=== PATIENT | male | born 1955 | race Caucasian/White ===

== ENCOUNTER → 2019-11-21 11:56 | Outpatient (BNVA) | payer MEDICARE, OTHER, SELFPAY | PROVIDERS: Family Provider Family Medicine; PCP Family Medicine; Referring Provider Family Medicine; Visit Provider Family Medicine | DX: F33.9 Major depressive disorder, recurrent, unspecified (principal); F43.10 Post-traumatic stress disorder, unspecified; G20 Parkinson's disease; R19.00 Intra-abdominal and pelvic swelling, mass and lump, unspecified site | CPT/HCPCS: 80053; 80061; 84443; 85025; G0103 ==

== ENCOUNTER → 2019-11-24 09:25 | Outpatient (BNVA) | payer SELFPAY | PROVIDERS: Family Provider Family Medicine; PCP Family Medicine; Visit Provider Psychiatry & Neurology Neurology | DX: R29.90 Unspecified symptoms and signs involving the nervous system (principal); G25.0 Essential tremor; Z79.899 Other long term (current) drug therapy | CPT/HCPCS: 99214 ==

== ENCOUNTER 2019-12-02 07:24 | Outpatient (CLI) | payer MEDICARE, OTHER, SELFPAY ==
--- NOTE | 2019-12-02 07:27 | CT_ITS ---
WS: [id number] CT CHEST, ABDOMEN, AND PELVIS TECHNIQUE: Noncontrast CT of the chest, abdomen, and pelvis with coronal and sagittal reformatted micheline ges. CLINICAL INFORMATION: abdominal mass, weight loss, smoker COMPARISON: None. DLP: 1253.[address] scans at [facility] use at least one of these dose optimization techniques: automat ed exposure control; mA and/or kV adjustment per patient size (includes targeted exams where dose is matched to clinical indication); or iterative reconstruction. CT CHEST: Mild chronic emphysematous changes. Noncalcified pulmonary nodule right upper lobe measuring 6 mm wit h a small amount of surrounding hazy groundglass infiltrate. Additional hazy groundglass nodule in th e right upper lobe medially measuring 4 mm. Additional noncalcified nodule in the right upper lobe measuring 3.5 mm. Additional 11 mm hazy irregu lar nodule in the right upper lobe along the right hilum with surrounding groundglass infiltrate. Sma ll neoplasm is not excluded. Aortic calcification. Coronary calcification. Normal caliber thoracic aorta. No mediastinal or hilar lymphadenopathy. No axillary lymphadenopathy. Normal GE junction. Dorsal spinal stimulator. CT ABDOMEN AND PELVIS: Noncontrast liver is normal. Normal gallbladder. Adrenal glands are normal. Normal noncontrast spleen . Normal GE junction. No hydronephrosis. Right renal cyst. Normal caliber abdominal aorta. Aortic dung cification. Sigmoid constipation. Incidental fat-containing umbilical hernia. No upper abdominal or pelvic lympha denopathy. No inguinal lymphadenopathy. Palpable marker in the right lower abdomen/pelvis. Normal underlying subcutaneous tissues in this loc ation. No ventral hernia. CT/CT chest abd pel wo con IMPRESSION: 1. In the area of palpable concern, right lower abdomen pelvis no evidence of underlying mass or lesion. Normal subcutaneous fat in this location. No ventral hernia. 2. No adenopathy in the chest abdomen or pelvis. 3. Moderate sigmoid constipation. 4. Right renal cysts. 5. Normal caliber abdominal aorta. 6. Several noncalcified pulmonary nodules the largest on the right hilum measu ring 10 mm. Surrounding hazy groundglass infiltrate. Small neoplasm is not excl uded and recommend 3 month follow-up and/or further evaluation with PET/CT. 7. Additional noncalcified 6mm nodule in the right upper lobe with surrounding groundglass infiltrate. 8. Additional right-sided subcentimeter nodules as described above.
== END 2019-12-02 07:25 | disposition home or self-care (01) ==
PROVIDERS: Family Provider Family Medicine; PCP Family Medicine; Visit Provider Family Medicine
DX: N28.1 Cyst of kidney, acquired (principal); K59.00 Constipation, unspecified; R19.00 Intra-abdominal and pelvic swelling, mass and lump, unspecified site; R91.8 Other nonspecific abnormal finding of lung field
CPT/HCPCS: 71250; 74176

== ENCOUNTER 2020-02-06 10:39 | Outpatient (CLI) | payer MEDICARE, OTHER, SELFPAY ==
--- NOTE | 2020-02-06 11:00 | CT_ITS ---
WS: [id number] CT CHEST TECHNIQUE: Noncontrast CT of the chest with coronal and sagittal reformatted images. CLINICAL INFORMATION: Pulmonary Nodule COMPARISON: CT December 02, 2019 DLP: 806.[address] scans at [facility] use at least one of these dose optimization techniques: automat ed exposure control; mA and/or kV adjustment per patient size (includes targeted exams where dose is matched to clinical indication); or iterative reconstruction. FINDINGS: Mild chronic emphysematous changes. Previously described hazy groundglass infiltrates in right upper lobe have improved. The previously described 10 mm right hilar opacity has resolved and was likely in fectious or inflammatory in etiology. Additional noncalcified pulmonary nodules in the right upper lo be the largest measuring 6 mm are stable. Stable 3.5 mm noncalcified nodule in the right upper lobe a nteriorly. Remainder of the subcentimeter pulmonary nodules are stable. No new parenchymal opacities. No focal pneumonia.Aortic calcification. Coronary calcification. Normal caliber thoracic aorta. Normal GE junction. Dorsal spinal stimulator. Right renal cyst. CT/CT chest wo con [id number] IMPRESSION: 1. Previously described groundglass hazy infiltrates in the right upper lobe a nd about the right hilum have resolved. Dominant opacity about the right hilum previously described measuring 11 mm has resolved and was likely infectious or inflammatory. 2. Otherwise stable noncalcified pulmonary nodules in the right upper lobe the largest measuring 6 mm. 3. No new pulmonary parenchymal opacities. 4. No mediastinal or hilar lymphadenopathy. 5. Vascular calcification including coronary. 6. No other significant interval changes.
== END 2020-02-06 10:40 | disposition home or self-care (01) ==
LOC: RADWPI 10:43
PROVIDERS: Family Provider Family Medicine; PCP Family Medicine; Visit Provider Internal Medicine Critical Care Medicine
DX: R91.1 Solitary pulmonary nodule (principal); R91.8 Other nonspecific abnormal finding of lung field; I67.2 Cerebral atherosclerosis
CPT/HCPCS: 71250

== ENCOUNTER → 2020-06-28 10:08 | Outpatient (BNVA) | payer MEDICARE, OTHER, SELFPAY | PROVIDERS: Family Provider Family Medicine; PCP Family Medicine; Visit Provider Family Medicine Adult Medicine | DX: N40.0 Benign prostatic hyperplasia without lower urinary tract symptoms (principal); N18.2 Chronic kidney disease, stage 2 (mild); K21.9 Gastro-esophageal reflux disease without esophagitis; G25.0 Essential tremor; E78.2 Mixed hyperlipidemia | CPT/HCPCS: 80053; 80061; 85025; G0103 ==

== ENCOUNTER → 2020-09-08 13:49 | Outpatient (BNVA) | payer MEDICARE, OTHER, SELFPAY | PROVIDERS: Family Provider Family Medicine; PCP Family Medicine Adult Medicine; Visit Provider Specialist | DX: R25.1 Tremor, unspecified (principal); Z87.891 Personal history of nicotine dependence | CPT/HCPCS: 99213 ==

== ENCOUNTER 2021-02-10 14:39 | Outpatient (CLI) | payer MEDICARE, OTHER, SELFPAY ==
--- NOTE | 2021-02-10 15:00 | US_ITS ---
WS: [id number] SCROTAL ULTRASOUND EXAMINATION CLINICAL INFORMATION: right scrotum swelling/mass getting larger COMPARISON: None. FINDINGS: TESTES Normal in size and echotexture, without focal lesion. Color Doppler: Normal color Doppler flow pattern. Right testes size: 3.7 cm x 3.4 cm x 3.1 cm. Left testes size: 4.8 cm x 3.2 cm x 3.1 cm. EPIDIDYMIDES Normal right epididymis. Left epididymis is not well visualized. Right epididymis size: cm x cm x 0.7 cm. HYDROCELE Moderate bilateral hydroceles right greater than left with internal debris. Edematous scrotum. VARICOCELE None. OTHER FINDINGS None. US/US scrotum [id number] IMPRESSION: 1. Moderate bilateral hydroceles right greater than left with internal debris. Edematous scrotum. 2. Normal testicular size and echotexture. 3. Normal right epididymis. Left epididymis not well visualized.
== END 2021-02-10 14:40 | disposition home or self-care (01) ==
LOC: RAD 14:43
PROVIDERS: PCP Family Medicine Adult Medicine; Visit Provider Family Medicine Adult Medicine
DX: N50.89 Other specified disorders of the male genital organs (principal); N43.3 Hydrocele, unspecified
CPT/HCPCS: 76870

== ENCOUNTER → 2021-02-18 11:37 | Outpatient (BNVA) | payer MEDICARE, OTHER, SELFPAY | PROVIDERS: PCP Family Medicine Adult Medicine; Referring Provider Family Medicine Adult Medicine; Visit Provider Urology | DX: N18.2 Chronic kidney disease, stage 2 (mild) (principal); N43.3 Hydrocele, unspecified; N40.0 Benign prostatic hyperplasia without lower urinary tract symptoms | CPT/HCPCS: 81003; G0103 ==

== ENCOUNTER → 2021-09-19 10:48 | Outpatient (BNVA) | payer MEDICARE, OTHER, SELFPAY | PROVIDERS: PCP Family Medicine Adult Medicine; Visit Provider Family Medicine Adult Medicine | DX: N18.2 Chronic kidney disease, stage 2 (mild) (principal); I10 Essential (primary) hypertension; N40.0 Benign prostatic hyperplasia without lower urinary tract symptoms; E03.9 Hypothyroidism, unspecified | CPT/HCPCS: 80053; 80061; 84443; 85025; G0103 ==

== ENCOUNTER → 2021-09-27 10:50 | Outpatient (BNVA) | payer MEDICARE, OTHER, SELFPAY | PROVIDERS: PCP Family Medicine Adult Medicine; Visit Provider Specialist | DX: G25.0 Essential tremor (principal); G31.84 Mild cognitive impairment of uncertain or unknown etiology; R63.0 Anorexia; Z68.26 Body mass index [BMI] 26.0-26.9, adult; F32.A Depression, unspecified; Z87.891 Personal history of nicotine dependence | CPT/HCPCS: 96116; 99214 ==

== ENCOUNTER → 2021-12-20 11:56 | Outpatient (BNVA) | payer MEDICARE, SELFPAY | PROVIDERS: PCP Family Medicine Adult Medicine; Visit Provider Family Medicine Adult Medicine | DX: K52.9 Noninfective gastroenteritis and colitis, unspecified (principal); I10 Essential (primary) hypertension; N18.2 Chronic kidney disease, stage 2 (mild); E78.2 Mixed hyperlipidemia; E03.9 Hypothyroidism, unspecified; R63.4 Abnormal weight loss | CPT/HCPCS: 80053; 84443 ==

== ENCOUNTER → 2022-02-06 11:28 | Outpatient (BNVA) | payer MEDICARE, OTHER, SELFPAY | PROVIDERS: PCP Family Medicine Adult Medicine; Visit Provider Specialist | DX: G25.0 Essential tremor (principal); R19.7 Diarrhea, unspecified; Z87.891 Personal history of nicotine dependence | CPT/HCPCS: 99213; 99214 ==

== ENCOUNTER → 2022-02-15 15:07 | Outpatient (BNVA) | payer MEDICARE, SELFPAY | PROVIDERS: PCP Family Medicine Adult Medicine; Referring Provider Family Medicine Adult Medicine; Visit Provider Surgery | DX: R63.4 Abnormal weight loss (principal); K52.9 Noninfective gastroenteritis and colitis, unspecified | CPT/HCPCS: 99203 ==

== ENCOUNTER 2022-02-18 13:20 | Emergency (ER) | payer MEDICARE, SELFPAY ==
[2022-02-18 14:04] VITALS: BP 121/76; PULSE 63; RESP 16; TEMP 37.2; O2SAT 96
[2022-02-18 15:39] VITALS: BP 131/71; PULSE 57; RESP 20; O2SAT 99
--- NOTE | 2022-02-18 15:43 | W.ED.GENADLT ---
Documented by User: ALVARO Salmeron 02/18/22 16:33 HPI - General Adult General: Chief complaint: General Medical Stated complaint: Pain in rectum area, blood in bowel Time Seen by Provider: 02/18/22 14:12 History of Present Illness: Patient presents with 2-day history of tenderness in his rectal area. Patient states he felt like he had a mass in his rectum yesterday and is feeling better today though. States had some puslike drainage come out of his rectum today. Had some blood yesterday but none today. Denies any fever chills nausea or vomiting. Did see Dr. Huitron last week and is scheduled for a colonoscopy and May. Associated symptoms: Deny chest pain, dyspnea, headache(s) or rash Review of Systems Const: Denies: fever(s) or chills Eyes: Denies: eye discomfort ENMT: Denies: throat pain Card: Denies: chest pain or dyspnea on exertion Resp: Denies: dyspnea or non-productive cough GI: Reports: abdominal pain, rectal pain and mucus in stool; Denies: change in bowel habits, rectal swelling or rectal itching : Denies: difficulty urinating Musc: Denies: joint pain Skin/Breast: Denies: rash Neuro: Denies: headache(s) Psych: Denies: anxiety or depression Jiemnez/Lymph: Denies: easy bruising or enlarged lymph nodes PFSH ED PFSH: Medical History Bradycardia Chronic diarrhea CKD (chronic kidney disease) stage 2, GFR 60-89 ml/min Essential tremor GERD (gastroesophageal reflux disease) Hydrocele, bilateral Hyperlipemia, mixed Hypertension Hypothyroidism (acquired) Memory changes Parkinson disease, symptomatic PTSD (post-traumatic stress disorder) Scrotum swelling Thyroid disease Weight loss of more than 10% body weight Weight loss, abnormal Surgical History History of back surgery Hx of foot surgery Hx of hernia repair Family History Other Hypertension Stroke Denies family history of Diabetes CAD (coronary artery disease) Cancer Social History Smoking and tobacco status: former smoker Quit status (tobacco): has quit using tobacco Year quit tobacco: 2006 Alcohol intake: never History of recent travel: No Physical Exam Const: COMMON NORMALS: no acute distress, patient oriented x3 and alert HENMT: COMMON NORMALS: normocephalic HEAD & SCALP: normocephalic Eye: COMMON NORMALS: EOMs intact bilaterally Neck/C-Spine: COMMON NORMALS: no JVD Resp: COMMON NORMALS: normal respiratory effort and No use of accessory muscles Cardio: COMMON NORMALS: no JVD GI: INSPECTION: Yes normal to inspection RECTAL EXAM: Yes normal sphincter tone, Yes heme negative stool, Yes Visual inspection abnormal (Slight redness about into 2 inches out from the rectum all around), No heme positive stool, No hemorrhoids, Yes Excoriation present (GI), Yes tenderness (Superior aspect of rectal exam tenderness noted. No mass felt) and Yes other (Minimal snot like drainage noted rectal opening) Extremity: COMMON NORMALS: normal to inspection and full ROM Neuro: COMMON NORMALS: patient oriented x3 SENSORIUM/ORIENTATION: Yes alert Psych: COMMON NORMALS: mental status grossly normal Skin: COMMON NORMALS: no rashes or lesions noted GENERAL SKIN EXAM: no rashes or lesions noted Course Vital Signs: Vital signs: Vital Signs Temperature 99.0 F 02/18/22 14:04 Pulse Rate 57 L 02/18/22 15:39 Respiratory Rate 20 H 02/18/22 15:39 Blood Pressure 131/71 02/18/22 15:39 Pulse Oximetry 99 02/18/22 15:39 MDM - General Adult Medical Decision Making Possible rectal abscess. Patient be placed on antibiotics, consult made for Dr. Huitron. I discussed case with Dr. Galindo. Pt will take abx and return to the ER if he has any significant worsening of symptoms. Discharge Plan Discharge Patient Disposition: Home Clinical Impression: Abscess of anal or rectal region Condition: Stable Prescriptions: New clindamycin HCl 300 mg capsule 300 mg PO Q8H 7 Days Qty: 21 0RF No Action calcium polycarbophil [FiberCon] 625 mg tablet 1,250 mg PO BID Qty: 120 5RF folic acid 1 mg tablet See Rx Instructions .ROUTE .COMPLEX Qty: 90 3RF Dose Instruction: TAKE 1 TABLET BY MOUTH DAILY Rx Instructions: TAKE 1 TABLET BY MOUTH DAILY pantoprazole 40 mg tablet,delayed release (DR/EC) See Rx Instructions .ROUTE .COMPLEX Qty: 90 3RF Dose Instruction: TAKE 1 TABLET BY MOUTH DAILY Rx Instructions: TAKE 1 TABLET BY MOUTH DAILY prazosin 2 mg capsule See Rx Instructions .ROUTE .COMPLEX Qty: 180 1RF Dose Instruction: TAKE 1 CAPSULE BY MOUTH TWICE DAILY FOR 90 DAYS Rx Instructions: TAKE 1 CAPSULE BY MOUTH TWICE DAILY FOR 90 DAYS olanzapine 20 mg tablet See Rx Instructions .ROUTE .COMPLEX Qty: 90 1RF Dose Instruction: TAKE 1 TABLET BY MOUTH NIGHTLY Rx Instructions: TAKE 1 TABLET BY MOUTH NIGHTLY levothyroxine 50 mcg tablet See Rx Instructions .ROUTE .COMPLEX Qty: 90 0RF Dose Instruction: TAKE 1 TABLET BY MOUTH DAILY Rx Instructions: TAKE 1 TABLET BY MOUTH DAILY duloxetine 60 mg capsule,delayed release(DR/EC) See Rx Instructions .ROUTE .COMPLEX Qty: 90 0RF Dose Instruction: TAKE 1 CAPSULE BY MOUTH NIGHTLY AT BEDTIME Rx Instructions: TAKE 1 CAPSULE BY MOUTH NIGHTLY AT BEDTIME simvastatin 20 mg tablet See Rx Instructions .ROUTE .COMPLEX Qty: 90 0RF Dose Instruction: TAKE 1 TABLET BY MOUTH DAILY FOR 90 DAYS Rx Instructions: TAKE 1 TABLET BY MOUTH DAILY FOR 90 DAYS duloxetine 30 mg capsule,delayed release(DR/EC) See Rx Instructions .ROUTE .COMPLEX Qty: 90 0RF Dose Instruction: TAKE 1 CAPSULE BY MOUTH NIGHTLY . TAKE IN ADDITION WITH THE 60MG CAPSULE Rx Instructions: TAKE 1 CAPSULE BY MOUTH NIGHTLY . TAKE IN ADDITION WITH THE 60MG CAPSULE primidone 50 mg tablet 100 mg PO BID 90 Days Qty: 360 1RF clonidine HCl 0.1 mg tablet See Rx Instructions .ROUTE .COMPLEX 90 Days Qty: 270 0RF Dose Instruction: TAKE ONE TABLET BY MOUTH THREE TIMES DAILY FOR BLOOD PRESSURE Rx Instructions: TAKE ONE TABLET BY MOUTH THREE TIMES DAILY FOR BLOOD PRESSURE metoprolol tartrate 25 mg tablet 12.5 mg PO .qhs Qty: 45 5RF tamsulosin 0.4 mg capsule See Rx Instructions .ROUTE .COMPLEX Qty: 90 1RF Dose Instruction: TAKE 1 CAPSULE BY MOUTH DAILY Rx Instructions: TAKE 1 CAPSULE BY MOUTH DAILY Discharge Orders: Discharge ED (Routine); Ordered 02/18/22 Ordered By: Danis Melton Referrals: Luis Manuel Rollins MD [Primary Care Provider] - Discharge Diet: Advance as tolerated Discharge Activity: Resume usual activity Activity Restrictions/Additional Instructions: Follow-up with medical provider as directed. Take medications as prescribed. Return to the ER or your medical provider if condition worsens. Please read and understand discharge instructions. If any questions ask please. Hospital will contact you with an appointment for Dr. Huitron's clinic. If you not hear from the hospital by Sunday please call his clinic for an appointment. Coding Level of Care Code ED Slicing Machine Feeder for Chg Fwd Exam Comprehensive Documented by User: Luca Galindo DO 02/20/22 10:02 HPI - General Adult General: Chief complaint: General Medical Stated complaint: Pain in rectum area, blood in bowel Time Seen by Provider: 02/18/22 14:12 PFSH ED PFSH: Medical History Bradycardia Chronic diarrhea CKD (chronic kidney disease) stage 2, GFR 60-89 ml/min Essential tremor GERD (gastroesophageal reflux disease) Hydrocele, bilateral Hyperlipemia, mixed Hypertension Hypothyroidism (acquired) Memory changes Parkinson disease, symptomatic PTSD (post-traumatic stress disorder) Scrotum swelling Thyroid disease Weight loss of more than 10% body weight Weight loss, abnormal Surgical History History of back surgery Hx of foot surgery Hx of hernia repair Family History Other Hypertension Stroke Denies family history of Diabetes CAD (coronary artery disease) Cancer Social History Smoking and tobacco status: former smoker Quit status (tobacco): has quit using tobacco Year quit tobacco: 2006 Alcohol intake: never History of recent travel: No Course Vital Signs: Vital signs: Vital Signs Temperature 99.0 F 02/18/22 14:04 Pulse Rate 57 L 02/18/22 15:39 Respiratory Rate 20 H 02/18/22 15:39 Blood Pressure 131/71 02/18/22 15:39 Pulse Oximetry 99 02/18/22 15:39 MDM - General Adult Medical Decision Making Possible rectal abscess. Patient be placed on antibiotics, consult made for Dr. Huitron. I discussed case with Dr. Galindo. Pt will take abx and return to the ER if he has any significant worsening of symptoms. Chart reviewed and patient discussed with midlevel. Agree with assessment and plan. Discharge Plan Discharge Patient Disposition: Home Clinical Impression: Abscess of anal or rectal region Condition: Stable Prescriptions: New clindamycin HCl 300 mg capsule 300 mg PO Q8H 7 Days Qty: 21 0RF No Action calcium polycarbophil [FiberCon] 625 mg tablet 1,250 mg PO BID Qty: 120 5RF folic acid 1 mg tablet See Rx Instructions .ROUTE .COMPLEX Qty: 90 3RF Dose Instruction: TAKE 1 TABLET BY MOUTH DAILY Rx Instructions: TAKE 1 TABLET BY MOUTH DAILY pantoprazole 40 mg tablet,delayed release (DR/EC) See Rx Instructions .ROUTE .COMPLEX Qty: 90 3RF Dose Instruction: TAKE 1 TABLET BY MOUTH DAILY Rx Instructions: TAKE 1 TABLET BY MOUTH DAILY prazosin 2 mg capsule See Rx Instructions .ROUTE .COMPLEX Qty: 180 1RF Dose Instruction: TAKE 1 CAPSULE BY MOUTH TWICE DAILY FOR 90 DAYS Rx Instructions: TAKE 1 CAPSULE BY MOUTH TWICE DAILY FOR 90 DAYS olanzapine 20 mg tablet See Rx Instructions .ROUTE .COMPLEX Qty: 90 1RF Dose Instruction: TAKE 1 TABLET BY MOUTH NIGHTLY Rx Instructions: TAKE 1 TABLET BY MOUTH NIGHTLY levothyroxine 50 mcg tablet See Rx Instructions .ROUTE .COMPLEX Qty: 90 0RF Dose Instruction: TAKE 1 TABLET BY MOUTH DAILY Rx Instructions: TAKE 1 TABLET BY MOUTH DAILY duloxetine 60 mg capsule,delayed release(DR/EC) See Rx Instructions .ROUTE .COMPLEX Qty: 90 0RF Dose Instruction: TAKE 1 CAPSULE BY MOUTH NIGHTLY AT BEDTIME Rx Instructions: TAKE 1 CAPSULE BY MOUTH NIGHTLY AT BEDTIME simvastatin 20 mg tablet See Rx Instructions .ROUTE .COMPLEX Qty: 90 0RF Dose Instruction: TAKE 1 TABLET BY MOUTH DAILY FOR 90 DAYS Rx Instructions: TAKE 1 TABLET BY MOUTH DAILY FOR 90 DAYS duloxetine 30 mg capsule,delayed release(DR/EC) See Rx Instructions .ROUTE .COMPLEX Qty: 90 0RF Dose Instruction: TAKE 1 CAPSULE BY MOUTH NIGHTLY . TAKE IN ADDITION WITH THE 60MG CAPSULE Rx Instructions: TAKE 1 CAPSULE BY MOUTH NIGHTLY . TAKE IN ADDITION WITH THE 60MG CAPSULE primidone 50 mg tablet 100 mg PO BID 90 Days Qty: 360 1RF clonidine HCl 0.1 mg tablet See Rx Instructions .ROUTE .COMPLEX 90 Days Qty: 270 0RF Dose Instruction: TAKE ONE TABLET BY MOUTH THREE TIMES DAILY FOR BLOOD PRESSURE Rx Instructions: TAKE ONE TABLET BY MOUTH THREE TIMES DAILY FOR BLOOD PRESSURE metoprolol tartrate 25 mg tablet 12.5 mg PO .qhs Qty: 45 5RF tamsulosin 0.4 mg capsule See Rx Instructions .ROUTE .COMPLEX Qty: 90 1RF Dose Instruction: TAKE 1 CAPSULE BY MOUTH DAILY Rx Instructions: TAKE 1 CAPSULE BY MOUTH DAILY Discharge Orders: Discharge ED (Routine); Ordered 02/18/22 Ordered By: Danis Melton Referrals: Luis Manuel Rollins MD [Primary Care Provider] - Discharge Diet: Advance as tolerated Discharge Activity: Resume usual activity Activity Restrictions/Additional Instructions: Follow-up with medical provider as directed. Take medications as prescribed. Return to the ER or your medical provider if condition worsens. Please read and understand discharge instructions. If any questions ask please. Hospital will contact you with an appointment for Dr. Huitron's clinic. If you not hear from the hospital by Sunday please call his clinic for an appointment. Coding Level of Care Code ED Slicing Machine Feeder for Jed Fwlidya Exam Comprehensive
--- NOTE | 2022-02-20 15:27 | DCPLANNER ---
Addendum entered by Liliane Bills 02/24/22 09:15: Patient had a follow up appointment scheduled for 02.22.22 at general surgery - patient did attend appointment. Original Note: corporate quality assurance manager had message to schedule a follow up appointment for patient with general surgery. corporate quality assurance manager sent patients information to the front office staff at general surgery. Patients information will be printed and reviewed. Clinic will call patient with appointment information.
== END 2022-02-18 16:02 | disposition home or self-care (01) ==
PROVIDERS: Emergency Provider Nurse Practitioner Family; PCP Family Medicine Adult Medicine
DX: K61.1 Rectal abscess (principal)
CPT/HCPCS: 99283

== ENCOUNTER → 2022-02-22 09:41 | Outpatient (BNVA) | payer MEDICARE, SELFPAY | PROVIDERS: PCP Family Medicine Adult Medicine; Visit Provider Surgery | DX: K61.2 Anorectal abscess (principal) | CPT/HCPCS: 99213 ==

== ENCOUNTER 2022-03-13 08:58 | Outpatient (CLI) | payer MEDICARE, SELFPAY ==
--- NOTE | 2022-03-13 10:30 | CT_ITS ---
WS: [id number] CT PELVIS WITH CONTRAST. HISTORY: Perianal abscess TECHNIQUE: Contiguous imaging is performed of the pelvis with contrast. Coronal and sagittal reformat s are reviewed. All CT scans at [facility] use at least one of these dose optimization techni ques: automated exposure control; mA and/or kV adjustment per patient size (includes targeted exams w here dose is matched to clinical indication); or iterative reconstruction. DLP: 583.63 mGy.cm COMPARISON: 12/02/2019 and ultrasound 02/10/2021 Fluid collection with enhancing wall in the midline, just posterior to the anus measures 2.3 x 0.8 cm . Consistent with a small perianal abscess. No tract is identified extending to the anus. There is mi ld fat stranding in the perineal soft tissues. Bilateral hydroceles and mild scrotal wall thickening. No pelvic lymph nodes. There is significant motion artifact through the soft tissues of the pelvis. Extensive calcifications within the visualized aorta. There is mild fat stranding along the paracolic gutters but poorly visu alized due to the significant motion artifact. There is a small amount of free fluid in the pelvis. CT/CT pelvis w con* [id number] IMPRESSION: 1. Quality of this examination is compromised by significant motion artifact. 2. Posterior perianal abscess measures 2.3 x 0.8 cm. No definite connection or tract is identified to the anus. 3. Bilateral hydroceles. 4. Small amount of free fluid in the pelvis.
[2022-03-13 10:53] LABS: Blood Urea Nitrogen 13 mg/dL (8-23); Glomerular Filtration Rate 74.5 mL/min (90-130)
== END 2022-03-13 08:59 | disposition home or self-care (01) ==
PROVIDERS: PCP Family Medicine Adult Medicine; Visit Provider Surgery
DX: K61.0 Anal abscess (principal)
CPT/HCPCS: 72193; 82565; 84520

== ENCOUNTER → 2022-03-23 12:46 | Outpatient (BNVA) | payer MEDICARE, SELFPAY | PROVIDERS: PCP Family Medicine Adult Medicine; Visit Provider Surgery | DX: K61.0 Anal abscess (principal) | CPT/HCPCS: 99213 ==

== ENCOUNTER → 2022-03-30 13:34 | Outpatient (BNVA) | payer MEDICARE, SELFPAY | PROVIDERS: PCP Family Medicine Adult Medicine; Visit Provider Surgery | DX: K61.0 Anal abscess (principal) | CPT/HCPCS: 99213 ==

== ENCOUNTER 2022-04-03 12:05 | Day surgery (SDC) | payer MEDICARE, SELFPAY ==
[2022-03-31 16:30] VITALS: BMI 22.8
--- NOTE | 2022-04-03 12:07 | W.PM.OPSUD ---
Surgery/Procedure H&P Update DATE OF PROCEDURE: April 03, 2022 DATE H&P PERFORMED: 03/30/22 H&P UPDATE INFORMATION: I have reviewed H&P completed within last 30 days, I have examined patient prior to procedure and No changes to prior documentation PRIMARY INDICATION FOR PROCEDURE: The same PLANNED PROCEDURE: Operation Date: 04/03/22 14:05 Proposed Procedures p Exam Under Anesthesia(Not Applicable) - Tod Huitron MD s Perirectal Abscess(Not Applicable) - Tod Huitron MD
[2022-04-03 12:35] VITALS: BP 146/75; PULSE 74; RESP 16; TEMP 36.7; O2SAT 97
[2022-04-03] MEDS: sodium chloride 0.9% 1,000 ML 30 ML (12:52)
[2022-04-03] MEDS: acetaminophen 1,000 MG/100 ML PIGGYBACK 400 MG IV (12:58)
--- NOTE | 2022-04-03 13:30 | ANES.PREANE2 ---
Pre-Anesthetic Assessment Height/Weight: Height 1.65 m Weight 62.142 kg Temp Pulse Resp BP Pulse Ox 98.1 F 74 16 146/75 97 04/03/22 12:35 04/03/22 12:35 04/03/22 12:35 04/03/22 12:35 04/03/22 12:35 Preop Diagnosis: Perianal abscess Operation Date: 04/03/22 14:05 Proposed Procedures p Exam Under Anesthesia(Not Applicable) - Tod Huitron MD s Perirectal Abscess(Not Applicable) - Tod Huitron MD Familial anesthetic complications: None Was Beta Ryan taken within 24 hours: Yes Was Clonidine taken within 24 hours: Yes Last intake: Intake Last Liquid Date 04/02/22 Last Liquid Time 22:00 Last Solid Date 04/02/22 Last Solid Time 11:00 Social No alcohol and No tobacco Exam alert, oriented x 3, clear to auscultation bilaterally and regular rate & rhythm Airway Mallampati: Class I Dentition: full Pulmonary None reported CV/HEM Arrythmia (bradycardia) and Hypertension Chronic Renal Insufficiency GI Gastroesophageal Reflux Disease Metabolic Hyperlipidemia, Morbid Obesity and Thyroid Disease Neuropsych tremor Anesthetic Plan ASA status: 3 Anesthesia: MAC Risk of > 500 ml blood loss (7ml/kg in children): No Medications/Allergies Home Medications Medication Instructions Recorded Confirmed Last Taken Type primidone 50 mg tablet 100 mg PO BID 90 Days #360 tab 12/12/21 04/03/22 04/03/22 06:00 Rx calcium polycarbophil 625 mg 1,250 mg PO BID #120 tab 12/20/21 04/03/22 04/03/22 06:00 Rx tablet (FiberCon) metoprolol tartrate 25 mg tablet 12.5 mg PO .qhs #45 tab 01/23/22 04/03/22 04/03/22 06:00 Rx tamsulosin 0.4 mg capsule See Rx Instructions .ROUTE 01/23/22 04/03/22 04/03/22 06:00 Rx .COMPLEX #90 cap clonidine HCl 0.1 mg tablet See Rx Instructions .ROUTE 02/23/22 04/03/22 04/03/22 06:00 Rx .COMPLEX #270 tab clarithromycin 500 mg tablet 500 mg PO BID 14 Days #28 tab 03/17/22 04/03/22 04/03/22 06:00 Rx duloxetine 30 mg capsule,delayed See Rx Instructions .ROUTE 03/17/22 04/03/22 04/03/22 06:00 Rx release .COMPLEX #90 cap duloxetine 60 mg capsule,delayed See Rx Instructions .ROUTE 03/17/22 04/03/22 04/03/22 06:00 Rx release .COMPLEX #90 cap folic acid 1 mg tablet See Rx Instructions .ROUTE 03/17/22 04/03/22 04/03/22 06:00 Rx .COMPLEX #90 tab levothyroxine 50 mcg tablet See Rx Instructions .ROUTE 03/17/22 04/03/22 04/03/22 06:00 Rx .COMPLEX #90 tab olanzapine 20 mg tablet See Rx Instructions .ROUTE 03/17/22 04/03/22 04/03/22 06:00 Rx .COMPLEX #90 tab pantoprazole 40 mg tablet,delayed See Rx Instructions .ROUTE 03/17/22 04/03/22 04/03/22 06:00 Rx release .COMPLEX #90 tab prazosin 2 mg capsule See Rx Instructions .ROUTE 03/17/22 04/03/22 04/03/22 06:00 Rx .COMPLEX #180 cap simvastatin 20 mg tablet See Rx Instructions .ROUTE 03/17/22 04/03/22 04/03/22 06:00 Rx .COMPLEX #90 tab Allergies Allergy/AdvReac Type Severity Reaction Status Date / Time pregabalin [From Lyrica] Allergy ADR-Halluci Verified 04/03/22 12:44 nating pseudoephedrine Allergy UNKNOWN Verified 04/03/22 12:44 [From Sudafed] trazodone Allergy Unknown Verified 04/03/22 12:44 [facility] Anesthesia Medical History Bradycardia Chronic diarrhea CKD (chronic kidney disease) stage 2, GFR 60-89 ml/min Essential tremor GERD (gastroesophageal reflux disease) Hydrocele, bilateral Hyperlipemia, mixed Hypertension Hypothyroidism (acquired) Memory changes Parkinson disease, symptomatic PTSD (post-traumatic stress disorder) Scrotum swelling Thyroid disease Weight loss of more than 10% body weight Weight loss, abnormal Surgical History History of back surgery Hx of foot surgery Hx of hernia repair Family History Other Hypertension Stroke Denies family history of Diabetes CAD (coronary artery disease) Cancer Social History Smoking and tobacco status: former smoker Quit status (tobacco): has quit using tobacco Year quit tobacco: 2006 Alcohol intake: never History of recent travel: No Data Anesthesia Cardiac Studies: No Data to Display
[2022-04-03] MEDS: piperacillin-tazobactam 3.375 GM in sodium chloride 0.9% (plus) 50 ML IV (13:46)
[2022-04-03] MEDS: lidocaine 2% INJ 20 mL INJECTION (14:08)
--- NOTE | 2022-04-03 14:11 | PM.OP ---
Operative Report Date of procedure: April 03, 2022 Pre-op diagnosis: Preop Diagnosis Perianal abscess Post-op findings: Normal anorectal examination except for enlarged prostate Procedure done: Examination under anesthesia Surgeon: Tod Huitron MD Information Services Manager: electron beam photo mask technician Liz Circulating nurse Christina Anesthesia: MAC (Surgery Edith) Estimated blood loss (mL): 2 Procedure: Patient was identified in the holding area, was taken to the OR placed first in supine position,IV antibiotics were given with induction time-out was done verifying the patient's name, date of , and procedure, all were in agreement. IV propofol was administered by the anesthesia provider, patient was placed in left lateral position SCDs were on and functioning. All pressure points were padded. Prep and drape was done under the usual sterile technique the perianal and perineum Following that a digital rectal examination was done, showed enlarged prostate otherwise no induration or palpable masses A lubricated self-retaining proctoscope was inserted, no evidence of external hemorrhoid below the dentate line or internal hemorrhoids. No evidence of fistulae or sinuses or bulge. Started by introducing a wet sponge to prevent any residual colon prep from contaminating the site of the excision, and under direct visualization. Wide bore needle was used to aspirate any potential fluid collection deeply seated and there was no evidence of pus or fluid collection. Hemostasis was achieved, irrigation was done, sponge was retrieved. Followed by irrigation.and ABD followed by surgical pants Patient was repositioned to supine position, counts of instruments,needles and sponges were completed at the end of the procedure I was present for the whole entire procedure Patient was then transferred to the recovery area in stable condition
[2022-04-03 14:16] VITALS: BP 73/41; PULSE 49; RESP 16; TEMP 36.5; O2SAT 98
[2022-04-03 14:19] VITALS: BP 91/52; PULSE 47; RESP 16; O2SAT 100
[2022-04-03 14:25] VITALS: BP 102/68; PULSE 60; RESP 16; TEMP 36.6; O2SAT 99
[2022-04-03 14:34] VITALS: BP 128/78; PULSE 56; RESP 16; O2SAT 98
[2022-04-03 14:45] VITALS: BP 128/78; PULSE 53; RESP 16; O2SAT 98
--- NOTE | 2022-04-03 16:03 | ANE.PACU2 ---
Inpatient post-anesthesia follow up: Airway intact: Yes Vital signs: Temperature 97.9 F Pulse Rate 53 Respiratory Rate 16 Blood Pressure 128/78 Pulse Oximetry 98 Oxygen Delivery Me thod Room Air Oxygen Flow Rate 8 Fraction of Inspir ed Oxygen Hydration adequate: Yes Nausea and vomiting: No Pain level: 2 Mental status: Baseline
== END 2022-04-03 14:50 | disposition home or self-care (01) ==
PROVIDERS: PCP Family Medicine Adult Medicine; Visit Provider Surgery
PROC: (CPT 10160; principal; 2022-04-03 13:55)
DX: K61.0 Anal abscess (principal); K21.9 Gastro-esophageal reflux disease without esophagitis; E78.5 Hyperlipidemia, unspecified; E66.01 Morbid (severe) obesity due to excess calories; Z68.22 Body mass index [BMI] 22.0-22.9, adult; I12.9 Hypertensive chronic kidney disease with stage 1 through stage 4 chronic kidney disease, or unspecified chronic kidney disease; N18.2 Chronic kidney disease, stage 2 (mild); E78.2 Mixed hyperlipidemia; E03.9 Hypothyroidism, unspecified; G20 Parkinson's disease; Z87.891 Personal history of nicotine dependence
CPT/HCPCS: 10160; J2543; J2704; J3010; J7030

== ENCOUNTER → 2022-04-12 14:13 | Outpatient (BNVA) | payer MEDICARE, SELFPAY | PROVIDERS: PCP Family Medicine Adult Medicine; Visit Provider Surgery | DX: Z09 Encounter for follow-up examination after completed treatment for conditions other than malignant neoplasm (principal) | CPT/HCPCS: 99024 ==

== ENCOUNTER 2022-04-19 09:19 | Day surgery (SDC) | payer MEDICARE, SELFPAY ==
[2022-04-17 13:55] VITALS: BMI 22.1
[2022-04-19 09:43] VITALS: BP 140/78; PULSE 70; RESP 18; TEMP 36.3; O2SAT 98
[2022-04-19] MEDS: sodium chloride 0.9% 1,000 ML 30 ML IV (10:13)
--- NOTE | 2022-04-19 10:44 | ANES.PREANE2 ---
Pre-Anesthetic Assessment Height/Weight: Height 1.65 m Weight 60.328 kg Temp Pulse Resp BP Pulse Ox 97.3 F L 70 18 140/78 98 04/19/22 09:43 04/19/22 09:43 04/19/22 09:43 04/19/22 09:43 04/19/22 09:43 Preop Diagnosis: Weight loss and chronic diarrhea Operation Date: 04/19/22 11:00 Proposed Procedures p EGD [id number]/r63.4/k52.9(Not Applicable) - Tod Huitron MD s Colonoscopy(Not Applicable) - Tod Huitron MD Familial anesthetic complications: none Was Beta Ryan taken within 24 hours: N/A Was Clonidine taken within 24 hours: N/A Last intake: Intake Last Liquid Date 04/18/22 Last Liquid Time 22:00 Last Solid Date 04/17/22 Last Solid Time 18:00 Social No alcohol and No tobacco Exam alert, oriented x 3, clear to auscultation bilaterally and regular rate & rhythm Airway Submandibular: within normal limits Cervical ROM: within normal limits Mallampati: Class II Dentition: chipped Pulmonary None reported CV/HEM Hypertension Chronic Renal Insufficiency Hepatic None reported GI Gastroesophageal Reflux Disease Chronic diarrhea Metabolic Thyroid Disease [facility] [place] [facility] [place] Essential tremor Neuropsych PTSD Parkinson Anesthetic Plan ASA status: 2 Other: I discussed with the patient risks, goals, and benefits of MAC and general anesthesia. We discussed spectrum of MAC anesthesia including conversion to general as well as possibility of recall of intraoperative stimuli including discomfort/pain. Patient agrees to proceed with MAC. Risk of > 500 ml blood loss (7ml/kg in children): No Medications/Allergies Home Medications Medication Instructions Recorded Confirmed Last Taken Type primidone 50 mg tablet 100 mg PO BID 90 Days #360 tab 12/12/21 04/17/22 04/03/22 06:00 Rx metoprolol tartrate 25 mg tablet 12.5 mg PO .qhs #45 tab 01/23/22 04/17/22 04/03/22 06:00 Rx clonidine HCl 0.1 mg tablet 0.1 mg PO TID 04/17/22 04/17/22 Unknown History duloxetine 30 mg capsule,delayed 30 mg PO QPM 04/17/22 04/17/22 Unknown History release duloxetine 60 mg capsule,delayed 60 mg PO QPM 04/17/22 04/17/22 Unknown History release folic acid 1 mg tablet 1 mg PO DAILY 04/17/22 04/17/22 Unknown History levothyroxine 50 mcg tablet 50 mcg PO DAILY 04/17/22 04/17/22 Unknown History olanzapine 20 mg tablet 20 mg PO QPM 04/17/22 04/17/22 Unknown History pantoprazole 40 mg tablet,delayed 40 mg PO DAILY 04/17/22 04/17/22 Unknown History release prazosin 2 mg capsule 2 mg PO BID 04/17/22 04/17/22 Unknown History simvastatin 20 mg tablet 20 mg PO DAILY 04/17/22 04/17/22 Unknown History tamsulosin 0.4 mg capsule 0.4 mg PO DAILY 04/17/22 04/17/22 Unknown History Allergies Allergy/AdvReac Type Severity Reaction Status Date / Time pregabalin [From Lyrica] Allergy ADR-Halluci Verified 04/17/22 13:51 nating pseudoephedrine Allergy UNKNOWN Verified 04/17/22 13:51 [From Jorge] trazodone Allergy Unknown Verified 04/17/22 13:51 Current Medications Generic Name Dose Route Start Last Admin Trade Name Freq PRN Reason Stop Dose Admin Sodium Chloride 1,000 mls @ 30 mls/hr 04/19/22 09:45 04/19/22 10:13 Sodium Chloride 0.9% IV 04/20/22 09:44 30 mls/hr .Q24H JUAN Administration PFSH Anesthesia Medical History Bradycardia Chronic diarrhea CKD (chronic kidney disease) stage 2, GFR 60-89 ml/min Essential tremor GERD (gastroesophageal reflux disease) Hydrocele, bilateral Hyperlipemia, mixed Hypertension Hypothyroidism (acquired) Memory changes Parkinson disease, symptomatic Perianal abscess PTSD (post-traumatic stress disorder) Scrotum swelling Thyroid disease Weight loss of more than 10% body weight Weight loss, abnormal Surgical History History of back surgery Hx of foot surgery Hx of hernia repair Family History Other Hypertension Stroke Denies family history of Diabetes CAD (coronary artery disease) Cancer Social History Smoking and tobacco status: former smoker Quit status (tobacco): has quit using tobacco Year quit tobacco: 2006 Alcohol intake: never History of recent travel: No Data Anesthesia Cardiac Studies: No Data to Display
--- NOTE | 2022-04-19 11:38 | W.PM.OPSUD ---
Surgery/Procedure H&P Update DATE OF PROCEDURE: April 19, 2022 DATE H&P PERFORMED: 04/12/22 H&P UPDATE INFORMATION: I have reviewed H&P completed within last 30 days, I have examined patient prior to procedure and No changes to prior documentation PREOP DIAGNOSIS: Weight loss and chronic diarrhea PRIMARY INDICATION FOR PROCEDURE: The same PLANNED PROCEDURE: Operation Date: 04/19/22 11:00 Proposed Procedures p EGD [id number]/r63.4/k52.9(Not Applicable) - Tod Huitron MD s Colonoscopy(Not Applicable) - Tod Huitron MD
[2022-04-19 12:06] VITALS: BP 87/62; PULSE 64; RESP 16; TEMP 36.3; O2SAT 99
[2022-04-19 12:15] VITALS: BP 121/60; PULSE 71; RESP 16; O2SAT 100
== END 2022-04-19 12:45 | disposition home or self-care (01) ==
PROVIDERS: PCP Family Medicine Adult Medicine; Visit Provider Surgery
PROC: 0DJ08ZZ Inspection of Upper Intestinal Tract, Via Natural or Artificial Opening Endoscopic (ICD-10-PCS; CPT 43235; principal; 2022-04-19 11:00)
PROC: 0DJD8ZZ Inspection of Lower Intestinal Tract, Via Natural or Artificial Opening Endoscopic (ICD-10-PCS; CPT 45378; 2022-04-19 11:00)
DX: K52.9 Noninfective gastroenteritis and colitis, unspecified (principal); R63.4 Abnormal weight loss; Z68.22 Body mass index [BMI] 22.0-22.9, adult; K57.30 Diverticulosis of large intestine without perforation or abscess without bleeding; K21.00 Gastro-esophageal reflux disease with esophagitis, without bleeding; K21.9 Gastro-esophageal reflux disease without esophagitis; K29.70 Gastritis, unspecified, without bleeding; K29.80 Duodenitis without bleeding; G20 Parkinson's disease; E78.2 Mixed hyperlipidemia; I12.9 Hypertensive chronic kidney disease with stage 1 through stage 4 chronic kidney disease, or unspecified chronic kidney disease; N18.2 Chronic kidney disease, stage 2 (mild)
CPT/HCPCS: 43239; 45378; 82274; 83630; 87493; 87506; 88305; J2704; J7030

== ENCOUNTER → 2022-05-24 14:18 | Outpatient (BNVA) | payer MEDICARE, SELFPAY | PROVIDERS: PCP Family Medicine Adult Medicine; Visit Provider Surgery | DX: K52.9 Noninfective gastroenteritis and colitis, unspecified (principal); K57.31 Diverticulosis of large intestine without perforation or abscess with bleeding; K29.90 Gastroduodenitis, unspecified, without bleeding; K20.90 Esophagitis, unspecified without bleeding | CPT/HCPCS: 99213 ==

== ENCOUNTER 2022-07-31 08:07 | Outpatient (CLI) | payer MEDICARE, SELFPAY ==
--- NOTE | 2022-07-31 08:45 | US_ITS ---
WS: [id number] RIGHT UPPER QUADRANT ULTRASOUND HISTORY: Diarrhea COMPARISON: None available. Liver: 13.3 cm in length. Normal size liver. No bile duct dilatation or mass. Portal Vein: Normal hepatopetal flow with monophasic waveform. Gallbladder: Normally distended gallbladder with no stones or wall thickening. CBD: 0.2 cm Pancreas: Normal size and echogenicity. Right kidney: 10.8 cm in length. Normal size kidney. Simple cortical cyst upper pole measures 12 x 12 x 13 mm. No hydronephrosis or solid mass. Aorta and IVC: Mild atherosclerosis aorta. No ascites. US/US gall bladder [id number] IMPRESSION: 1. Normal gallbladder. 2. Simple RIGHT renal cyst.
== END 2022-07-31 08:08 | disposition home or self-care (01) ==
PROVIDERS: PCP Family Medicine Adult Medicine; Visit Provider Surgery
DX: R19.7 Diarrhea, unspecified (principal); N28.1 Cyst of kidney, acquired
CPT/HCPCS: 76705

== ENCOUNTER → 2022-08-14 14:58 | Outpatient (BNVA) | payer MEDICARE, SELFPAY | PROVIDERS: PCP Family Medicine Adult Medicine; Visit Provider Surgery | DX: Z09 Encounter for follow-up examination after completed treatment for conditions other than malignant neoplasm (principal); K52.9 Noninfective gastroenteritis and colitis, unspecified | CPT/HCPCS: 99212 ==

== ENCOUNTER 2022-10-16 09:46 | Outpatient (CLI) | payer MEDICARE, SELFPAY ==
--- NOTE | 2022-10-16 10:00 | NM_ITS ---
WS: [id number] NUCLEAR MEDICINE HIDA SCAN CLINICAL INFORMATION: chronic diarrhea TECHNIQUE: Following intravenous administration of 7.1 mCi of technetium 99m mebrofenin, images of th e abdomen were obtained over the course of 60 minutes. Next, gallbladder ejection fraction was determ ined by obtaining preprandial and one-hour postprandial images of the gallbladder following oral kenny stion of Ensure. COMPARISON: Ultrasound July 31, 2022 FINDINGS: Normal hepatic uptake. Normal hepatic excretion. Gallbladder is visualized by 10 minutes. No evidence of acute cholecystitis. Normal common bile duct and small bowel activity. Gallbladder ejection fraction 91% within normal limits. No evidence of chronic cholecystitis. NM/NM hepatobiliary w phar* [id number] IMPRESSION: 1. No evidence of acute cholecystitis. 2. Normal gallbladder ejection fraction 91% within normal limits. No evidence of chronic cholecystitis.
== END 2022-10-16 09:47 | disposition home or self-care (01) ==
LOC: RAD 09:53
PROVIDERS: PCP Family Medicine Adult Medicine; Visit Provider Surgery
DX: K52.9 Noninfective gastroenteritis and colitis, unspecified (principal)
CPT/HCPCS: 78227; A9537

== ENCOUNTER → 2022-10-25 09:06 | Outpatient (BNVA) | payer MEDICARE, SELFPAY | PROVIDERS: PCP Family Medicine Adult Medicine; Visit Provider Family Medicine Adult Medicine | DX: K52.9 Noninfective gastroenteritis and colitis, unspecified (principal); I10 Essential (primary) hypertension; N18.2 Chronic kidney disease, stage 2 (mild); E03.9 Hypothyroidism, unspecified; F33.9 Major depressive disorder, recurrent, unspecified; E78.2 Mixed hyperlipidemia | CPT/HCPCS: 80053; 80061; 84443; 85025 ==

== ENCOUNTER → 2023-02-06 12:58 | Outpatient (BNVA) | payer MEDICARE, SELFPAY | PROVIDERS: PCP Family Medicine Adult Medicine; Visit Provider Specialist | DX: G25.0 Essential tremor (principal); F41.9 Anxiety disorder, unspecified | CPT/HCPCS: 99212 ==

== ENCOUNTER → 2023-04-18 10:02 | Outpatient (BNVA) | payer MEDICARE, SELFPAY | PROVIDERS: PCP Family Medicine Adult Medicine; Visit Provider Family Medicine Adult Medicine | DX: E03.9 Hypothyroidism, unspecified (principal); E78.2 Mixed hyperlipidemia; N18.2 Chronic kidney disease, stage 2 (mild); I12.9 Hypertensive chronic kidney disease with stage 1 through stage 4 chronic kidney disease, or unspecified chronic kidney disease | CPT/HCPCS: 80053; 80061; 84443; 85025 ==

== ENCOUNTER → 2023-05-01 08:44 | Outpatient (BNVA) | payer MEDICARE, SELFPAY | PROVIDERS: PCP Family Medicine Adult Medicine; Visit Provider Nurse Practitioner Family | DX: D22.5 Melanocytic nevi of trunk (principal) | CPT/HCPCS: 17003; 17000; 99214 ==

== ENCOUNTER → 2023-11-05 08:18 | Outpatient (BNVA) | payer MEDICARE, SELFPAY | PROVIDERS: PCP Family Medicine Adult Medicine; Visit Provider Nurse Practitioner Family | DX: L57.0 Actinic keratosis (principal); L81.4 Other melanin hyperpigmentation; D22.5 Melanocytic nevi of trunk; L85.3 Xerosis cutis; D48.5 Neoplasm of uncertain behavior of skin | CPT/HCPCS: 11102; 17000; 99213 ==

== ENCOUNTER → 2024-01-23 09:30 | Outpatient (BNVA) | payer MEDICARE, SELFPAY | PROVIDERS: PCP Family Medicine Adult Medicine; Visit Provider Family Medicine Adult Medicine | DX: I12.9 Hypertensive chronic kidney disease with stage 1 through stage 4 chronic kidney disease, or unspecified chronic kidney disease (principal); N18.2 Chronic kidney disease, stage 2 (mild); N40.0 Benign prostatic hyperplasia without lower urinary tract symptoms; E78.2 Mixed hyperlipidemia; K52.9 Noninfective gastroenteritis and colitis, unspecified | CPT/HCPCS: 80053; 80061; 84443; 85025; G0103 ==

== ENCOUNTER → 2024-02-06 09:50 | Outpatient (BNVA) | payer MEDICARE, SELFPAY | PROVIDERS: PCP Family Medicine Adult Medicine; Visit Provider Specialist | DX: L57.0 Actinic keratosis (principal); L82.1 Other seborrheic keratosis; L21.8 Other seborrheic dermatitis; D48.5 Neoplasm of uncertain behavior of skin; D22.5 Melanocytic nevi of trunk; G25.0 Essential tremor | CPT/HCPCS: 11104; 17000; 99212; 99214 ==

== ENCOUNTER → 2024-03-19 10:01 | Outpatient (BNVA) | payer MEDICARE, SELFPAY | PROVIDERS: PCP Family Medicine Adult Medicine; Visit Provider Dermatology | DX: C44.629 Squamous cell carcinoma of skin of left upper limb, including shoulder (principal) | CPT/HCPCS: 11602; 13121 ==

== ENCOUNTER → 2024-08-13 10:44 | Outpatient (BNVA) | payer MEDICARE, SELFPAY | PROVIDERS: PCP Family Medicine Adult Medicine; Visit Provider Nurse Practitioner Family | DX: L21.8 Other seborrheic dermatitis (principal); L82.1 Other seborrheic keratosis; D22.5 Melanocytic nevi of trunk; L81.4 Other melanin hyperpigmentation; L57.8 Other skin changes due to chronic exposure to nonionizing radiation; Z85.828 Personal history of other malignant neoplasm of skin; D48.5 Neoplasm of uncertain behavior of skin; L57.0 Actinic keratosis | CPT/HCPCS: 11104; 17000; 99214 ==

== ENCOUNTER → 2024-12-25 11:24 | Outpatient (BNVA) | payer MEDICARE, SELFPAY | PROVIDERS: PCP Family Medicine; Visit Provider Family Medicine | DX: I10 Essential (primary) hypertension (principal); E78.2 Mixed hyperlipidemia; E03.9 Hypothyroidism, unspecified; K21.9 Gastro-esophageal reflux disease without esophagitis; F33.9 Major depressive disorder, recurrent, unspecified; N18.2 Chronic kidney disease, stage 2 (mild) | CPT/HCPCS: 80053; 80061; 82607; 84439; 84443; 85025 ==

== ENCOUNTER → 2025-02-05 10:17 | Outpatient (BNVA) | payer MEDICARE, SELFPAY | PROVIDERS: PCP Family Medicine Adult Medicine; Visit Provider Specialist | DX: G25.0 Essential tremor (principal) | CPT/HCPCS: 99213 ==

== ENCOUNTER → 2025-02-11 10:45 | Outpatient (BNVA) | payer MEDICARE, SELFPAY | PROVIDERS: PCP Family Medicine Adult Medicine; Visit Provider Nurse Practitioner Family | DX: D22.5 Melanocytic nevi of trunk (principal); L81.4 Other melanin hyperpigmentation; L57.8 Other skin changes due to chronic exposure to nonionizing radiation; Z85.828 Personal history of other malignant neoplasm of skin; L57.0 Actinic keratosis | CPT/HCPCS: 17000; 99213 ==

== ENCOUNTER → 2025-08-18 10:08 | Outpatient (BNVA) | payer MEDICARE, SELFPAY | PROVIDERS: PCP Family Medicine; Visit Provider Nurse Practitioner Family | DX: L57.8 Other skin changes due to chronic exposure to nonionizing radiation (principal); L81.4 Other melanin hyperpigmentation; D18.01 Hemangioma of skin and subcutaneous tissue; Z85.828 Personal history of other malignant neoplasm of skin; L57.0 Actinic keratosis | CPT/HCPCS: 17000; 99213 ==

== ENCOUNTER 2025-09-18 11:21 | Outpatient (CLI) | payer MEDICARE, SELFPAY ==
--- NOTE | 2025-09-18 11:30 | XR_ITS ---
WS: [id number] XR lumbar spine 2-3V* [id number] REASON FOR EXAM: right lower back/gluteal hip pain FINDINGS: Relatively normal lumbar spine curvatures. No focal lesion or significant compression deformity of the lumbar vertebrae. Moderate to significant narrowing of the L2-L3 disc space with moderate endplate sclerosis and osteophytosis. Remaining disc spaces are intact and relatively well preserved with mild vertebral body osteophytosis. No spondylolysis and no significant spondylolisthesis. XR/XR lumbar spine 2-3V* [id number] IMPRESSION: Mild to moderate degenerative spondylosis of the lumbar spine.
--- NOTE | 2025-09-18 11:30 | XR_ITS ---
WS: [id number] XR hip RT 2-3V wo/w pel* [id number] REASON FOR EXAM: R hip gluteal pain FINDINGS: No fracture or focal bone lesion. Mild narrowing of the joint space. Mild subchondral sclerosis and osteophytosis of the acetabulum. Minimal osteophytosis of the femoral head. XR/XR hip RT 2-3V wo/w pel* [id number] IMPRESSION: Mild osteoarthritis of the right hip.
== END 2025-09-18 11:22 | disposition home or self-care (01) ==
PROVIDERS: PCP Family Medicine; Visit Provider Family Medicine
DX: M47.816 Spondylosis without myelopathy or radiculopathy, lumbar region (principal); M48.061 Spinal stenosis, lumbar region without neurogenic claudication; M16.11 Unilateral primary osteoarthritis, right hip
CPT/HCPCS: 72100; 73502

== ENCOUNTER 2025-10-05 14:32 | Outpatient (CLI) | payer MEDICARE, SELFPAY ==
--- NOTE | 2025-10-05 15:00 | CTR_ITS ---
PROCEDURE INFORMATION: Exam: CT Lumbar Spine Without Contrast Exam date and time: 10/05/2025 2:58 PM Age: 69 years old Clinical indication: Pain; Lumbago with sciatica; Right; Additional info: Chronic back pain w/ R sciatica; , Chronic back pain w/ R sciatica; He cannot have mri b/c has TECHNIQUE: Imaging protocol: Computed tomography of the lumbar spine without contrast. Radiation optimization: All CT scans at this facility use at least one of these dose optimization techniques: automated exposure control; mA and/or kV adjustment per patient size (includes targeted exams where dose is matched to clinical indication); or iterative reconstruction. COMPARISON: CR XR lumbar spine 2-3V* [id number] 09/18/2025 11:38 AM RADIATION DOSE METRICS: Total DLP (mGy-cm): 536.17 FINDINGS: Bones/joints: The lumbar lordosis is preserved. Posterior elements are aligned. Minimal retrolisthesis L2 on L3. L1-L2: Mild diffuse disc bulge and bilateral facet arthrosis. No significant spinal canal or foraminal stenosis. L2-L3: Disc degeneration. Diffuse disc bulge and bilateral facet arthrosis contributes to mild bilateral foraminal narrowing. At least mild spinal canal stenosis. L3-L4: Diffuse disc bulge and bilateral facet arthrosis results in [id number] right, mild left foraminal stenosis. Mild spinal canal stenosis. L4-L5: Schmorl node indents the superior endplate of L5. Diffuse disc bulge, bilateral facet arthrosis, and ligamentum flavum thickening results in moderate to severe spinal canal stenosis and moderate bilateral foraminal narrowing. There is soft tissue around the [id number]-left facet joints posteriorly. L5-S1: Diffuse disc bulge and bilateral facet arthrosis without significant spinal canal or foraminal stenosis. Adrenal glands: Bilateral adrenal nodules measuring up to 1.7 cm on the left measuring under 10 Hounsfield units, compatible with adenomas. Kidneys and ureters: Right renal cortical hypoattenuating lesions measuring up to 2.3 cm compatible with simple cysts. Vasculature: Atherosclerotic aortoiliac intimal calcifications. Soft tissues: Unremarkable. CT/CT lumbar spine wo con* [id number] IMPRESSION: 1. Vacuum disc phenomenon at L2-L3 with endplate erosive changes, likely degenerative. There are no prevertebral inflammatory changes to suggest osteomyelitis. Correlate clinically and obtain ESR/CRP if clinical suspicion is high. 2. Evaluation of spinal canal contents is limited with CT technique. Within limitations, there are varying degrees of multilevel spinal canal and bilateral foraminal stenosis, most prominently at L4-L5. 3. Nonspecific soft tissue around the bilateral L4-L5 facet joints may reflect degenerative inflammatory changes. Again, correlate clinically for infectious etiology. COMMENTS: 1. Consistent with the [employer]'s Incidental Findings Committee white paper (J Am Geovanna Radiol 2017): For any incidental adrenal lesion greater than or equal to 1 cm but less than or equal to 4 cm classified in this report as benign, likely benign, or containing fat (including classification as an adenoma or myelolipoma), no follow-up imaging is recommended per consensus recommendations based on imaging criteria. Further lab evaluation could be pursued if warranted based on clinical findings. 2. Consistent with the [employer]'s Incidental Findings Committee white paper (J Am Geovanna Radiol 2018): Any incidental renal lesion less than 1 cm or classified as too small to characterize, or any incidental cystic renal lesion characterized as simple-appearing, is likely benign. No follow-up imaging is recommended for these lesions per consensus recommendations based on imaging criteria.
== END 2025-10-05 14:33 | disposition home or self-care (01) ==
PROVIDERS: PCP Family Medicine; Visit Provider Family Medicine
DX: M47.26 Other spondylosis with radiculopathy, lumbar region (principal); M48.061 Spinal stenosis, lumbar region without neurogenic claudication; M51.362 Other intervertebral disc degeneration, lumbar region with discogenic back pain and lower extremity pain; M51.46 Schmorl's nodes, lumbar region; I70.0 Atherosclerosis of aorta; E27.8 Other specified disorders of adrenal gland; M47.896 Other spondylosis, lumbar region; M24.28 Disorder of ligament, vertebrae; M51.379 Other intervertebral disc degeneration, lumbosacral region without mention of lumbar back pain or lower extremity pain; N28.89 Other specified disorders of kidney and ureter; I70.8 Atherosclerosis of other arteries; M79.89 Other specified soft tissue disorders
CPT/HCPCS: 72131